=== PATIENT | female | born 1985 | race Caucasian/White ===

== ENCOUNTER 2017-11-10 08:14 | Emergency (ER) | payer BC, OTHER ==
[2017-11-10 08:26] VITALS: BMI 25.8
--- NOTE | 2017-11-10 08:38 | PDOC ---
History of Present Illness - General Chief Complaint: Nausea/Vomiting Stated Complaint: ABD PAIN Time Seen by Provider: 11/10/17 08:31 History Source: Patient - History of Present Illness Initial Comments: 11/10/17 09:06 32 year old female with no reported PMH presents with acute onset of abdominal pain. Patient states the pain started 10 minutes prior to presentation, pain is sharp, intermittent, 10/10 and diffuse but especially severe in B/L LQ. One episode of non-bloody watery stools this morning. Last PO intake yesterday evening. Denies fevers/nausea/vomiting as well as dysuria/hematuria. Of note, patient is 5 months post partpum and had an IUD placed two weeks previous. LMP was prior to . NKDA Surgical: denies Social: denies cigarettes, denies alcohol, denies recreational drugs PMD: Dr. Hennessy - last evaluated 4 years previous Past History - Past Medical History Allergies/Adverse Reactions: Allergies Allergy/AdvReac Type Severity Reaction Status Date / Time No Known Allergies Allergy Verified 11/10/17 08:23 Home Medications: Ambulatory Orders NK [No Known Home Medication] 11/10/17 COPD: No - Suicide/Smoking/Psychosocial Hx Smoking History: Never smoked Review of Systems - Review of Systems Constitutional: No: Chills, Fever Respiratory: No: Cough, Shortness of Breath Cardiac (ROS): No: Chest Pain, Lightheadedness, Palpitations ABD/GI: Yes: Abdominal cramping. No: Constipated, Diarrhea, Nausea, Vomiting : No: Burning, Dysuria, Discharge, Frequency, Hematuria *Physical Exam - Vital Signs Last Vital Signs Temp Pulse Resp BP Pulse Ox 77 20 128/75 99 11/10/17 08:20 11/10/17 08:20 11/10/17 08:20 11/10/17 08:20 - Physical Exam General Appearance: Yes: Nourished, Appropriately Dressed Neck: positive: Trachea midline, Supple Respiratory/Chest: positive: Lungs Clear, Normal Breath Sounds. negative: Labored Respiration, Rapid RR Cardiovascular: positive: S1, S2. negative: Edema, JVD Vascular Pulses: Dorsalis-Pedis (R): 2+, Doralis-Pedis (L): 2+ Gastrointestinal/Abdominal: positive: Normal Bowel Sounds, Soft, Other (LUQ TTP , no suprapubic TTP). negative: Guarding, Rebound, Hernia Musculoskeletal: negative: CVA Tenderness (R), CVA Tenderness (L) Extremity: positive: Normal Capillary Refill, Normal Inspection Integumentary: positive: Normal Color, Dry, Warm Neurologic: positive: Fully Oriented, Alert ED Treatment Course - LABORATORY CBC & Chemistry Diagram: 11/10/17 09:06 11/10/17 09:06 Medical Decision Making - Medical Decision Making 11/10/17 09:12 32 year old female presents with acute onset of severe abdominal pain. VS unremarkable. PE significant for significant TTP in LUQ, no peritoneal sign. Frontal diagnosis: PID, displaced IUD, ovarian torsion/cyst, gastroenteritis, early cholecystitis. Will obtain basic labs, and pelvic exam. Morphine for pain control. 11/10/17 10:29 Pelvic exam shows closed cervical os, physiologic discharge. IUD string not visualized. No CMT, non-palpable adenxa. G/C pending 11/10/17 10:32 CBC, CMP unremarkable. UA normal. Urine culture, G/C pending. 11/10/17 11:[address] shows mild hepatomegaly, no SBO, small umbilical hernia, no free fluid, small cysts in ovaries, normal sized uterus. No active acute abdominal process. No abdominal TTP on repeat exam. Patient symptomatically improved. Will discharge home with return precautions, referral to PMD. I discussed the physical exam findings, ancillary test results and final diagnoses with the patient. I answered all of the patient's questions. The patient was satisfied with the care received and felt comfortable with the discharge plan and treatment plan. The patient will return to the Emergency Department with any new, persistent or worsening symptoms. *DC/Admit/Observation/Transfer Diagnosis at time of Disposition: Abdominal pain - Discharge Dispostion Disposition: HOME Condition at time of disposition: Good Decision to Admit order: No - Referrals Referrals: Sharon Deluca MD [Staff Physician] - - Patient Instructions Printed Discharge Instructions: DI for Abdominal Pain-Adult Additional Instructions: As requested, a referral to a primary care doctor has been provided to you. Please return to the Emergency Department for any new/worsening/concerning symptoms. - Post Discharge Activity Forms/Work/School Notes: Back to Work
--- NOTE | 2017-11-10 08:51 | PDOC ---
Attending Attestation - Resident Resident Name: Purnima Greene - HPI HPI: 11/10/17 11:31 Pt presents to the ED complaining of generalized abdominal pain, nausea and diarrhea. Denies fever. Pain is worst in a band like distribution across the mid abdomen. 11/10/17 12:13 - Physicial Exam PE: 11/10/17 12:28 Agree with resident exam. Patient is well appearing and abdomen is non tender on my exam. - Medical Decision Making 11/10/17 12:33 Pt presents to the ED complaining of the acute onset of mid abdominal pain. Abdomen non tender on my exam. Labs checked to rule out intraabdominal pathology and are negative. Ct negative. Will discharge home.
[2017-11-10] MEDS ORDERED: morphine CARPU-JECT 4 MG/1 ML DISP.SYRIN IVPUSH ONE (09:04)
[2017-11-10] MEDS ORDERED: SODIUM CHLORIDE 0.9% 500 ML INFUS.BAG IV ONE (09:05)
[2017-11-10] MEDS ORDERED: ONDANSETRON 4 MG/2 ML VIAL IVPUSH ONE (09:19)
[2017-11-10] MEDS ORDERED: ONDANSETRON 4 MG/2 ML VIAL ONE (09:20)
[2017-11-10] MEDS ORDERED: morphine SULFATE 4 MG/ML VIAL ONE (09:28)
[2017-11-10 09:33] LABS: BASO % 0.4 % (0-2.0); EOS % 1.9 % (0-4.5); HEMATOCRIT 40.9 % (32.4-45.2); HEMOGLOBIN 13.6 GM/dL (10.7-15.3); LYMPH % 18.6 % (8-40); MCH 27.8 pg (25.7-33.7); MCHC 33.2 g/dl (32.0-36.0); MEAN CELL VOLUME 83.9 fl (80-96); MEAN PLT VOLUME 7.7 fl (7.5-11.1); MONO % 4.9 % (3.8-10.2); NEUT % 74.2 % (42.8-82.8); PLATELET COUNT 216 K/MM3 (134-434); RBC 4.87 M/mm3 (3.60-5.2); RDW 13.4 % (11.6-15.6); WHITE BLOOD COUNT 9.4 K/mm3 (4.0-10.0)
[2017-11-10 09:34] LABS: URINE APPEARANCE CLEAR; URINE BILIRUBIN NEGATIVE (<2.0 mg/dL); URINE COLOR STRAW; URINE GLUCOSE (UA) NEGATIVE (NEGATIVE); URINE KETONE NEGATIVE (NEGATIVE); URINE LEUK ESTERASE NEGATIVE (NEGATIVE); URINE NITRITE NEGATIVE (NEGATIVE); URINE PROTEIN NEGATIVE (NEGATIVE); URINE UROBILINOGEN NEGATIVE mg/dL (0.2-1.0)
[2017-11-10 10:06] LABS: ANION GAP 7 (8-16); BLOOD UREA NITROGEN 12 mg/dL (7-18); CALCIUM 9.1 mg/dL (8.5-10.1); CHLORIDE 107 mmol/L (98-107); CO2 28 mmol/L (21-32); CREATININE 0.8 mg/dL (0.55-1.02); GLUCOSE,RANDOM 81 mg/dL (74-106); LIPASE 126 U/L (73-393); POTASSIUM 4.8 mmol/L (3.5-5.1); SGOT/AST 18 U/L (15-37); SGPT/ALT 23 U/L (12-78); SODIUM 142 mmol/L (136-145)
[2017-11-10 10:08] LABS: ALK PHOS 95 U/L (45-117); BILIRUBIN,TOTAL 0.3 mg/dL (0.2-1.0); TOT PROT 7.3 g/dl (6.4-8.2)
[2017-11-10 11:51] VITALS: BP 115/70; PULSE 55; TEMP 98
== END 2017-11-10 12:18 | disposition home or self-care (01) ==
LOC: JER 08:14
PROC: 3E033GC Introduction of Other Therapeutic Substance into Peripheral Vein, Percutaneous Approach (ICD-10-PCS; principal; 2017-11-10)
PROC: 3E033NZ Introduction of Analgesics, Hypnotics, Sedatives into Peripheral Vein, Percutaneous Approach (ICD-10-PCS; 2017-11-10)
DX: R10.84 Generalized abdominal pain (principal); Z97.5 Presence of (intrauterine) contraceptive device
CPT/HCPCS: 36415; 74177-TC; 80053; 81003; 83690; 84703; 85025; 87086; 87491; 87591; 99284-25